=== PATIENT | female | born 1955 | race Caucasian/White ===

== ENCOUNTER → 2020-12-21 02:47 | Outpatient (CLI) | payer BC, SELFPAY ==
[2020-12-21 19:43] LABS: SARS-CoV-2 RNA PCR Negative
== END ==
PROVIDERS: PCP Family Medicine; Visit Provider Internal Medicine Gastroenterology
DX: Z01.812 Encounter for preprocedural laboratory examination (principal); Z20.822 Contact with and (suspected) exposure to COVID-19
CPT/HCPCS: C9803; U0003; U0005

== ENCOUNTER → 2021-01-25 00:06 | Outpatient (CLI) | payer BC, SELFPAY ==
[2021-01-25 19:27] LABS: SARS-CoV-2 RNA PCR Negative
== END ==
PROVIDERS: PCP Family Medicine; Visit Provider Internal Medicine Gastroenterology
DX: Z01.812 Encounter for preprocedural laboratory examination (principal); Z20.822 Contact with and (suspected) exposure to COVID-19
CPT/HCPCS: C9803; U0003; U0005

== ENCOUNTER 2021-01-29 00:26 | Day surgery (SDC) | payer BC, SELFPAY ==
[2020-12-12 14:11] VITALS: BMI 23.1
[2021-01-14 10:56] VITALS: BMI 23.1
[2021-01-29 06:16] VITALS: BP 120/62; PULSE 61; RESP 16; TEMP 36.3; O2SAT 100; BMI 22.4
[2021-01-29] MEDS: LACTATED RINGERS 1,000 ML 150 ML IV CONT (06:25)
--- NOTE | 2021-01-29 07:21 | P.PNAN_ITS ---
Anes - Initial Pre Proc Eval Procedure: Operation Date: 01/29/21 07:30 Proposed Procedures p Screening Colonoscopy - Constantino Darby MD Date/Time: 01/29/21 07:21 Surgeon: Constantino Darby MD Pre Op Diagnosis: neoplasm screening Patient Data Age: 65 Gender: F Height: 1.68 m Weight: 62.9 kg Last Vital Signs Temp 97.3 F L 01/29/21 06:16 Pulse 61 01/29/21 06:16 Resp 16 01/29/21 06:16 BP 120/62 01/29/21 06:16 Pulse Ox 100 01/29/21 06:16 Allergies Allergy/AdvReac Type Severity Reaction Status Date / Time NKDA Allergy Unknown Unknown Uncoded 01/29/21 06:14 Home Medications Medication Instructions Recorded Confirmed Type zolpidem 5 mg PO DAILY PRN 12/12/20 01/29/21 History Patient hx anesthesia problems: none Family hx anesthesia problems: none [facility] Past Medical History Medical History (Updated 01/29/21 @ 07:21 by Josue Raymundo MD) Healthy adult Social History Social History Smoking status: Never smoker Alcohol intake: current Drinks per week: 9 Alcohol use details: BEER Substance use: never Substance use type: does not use Living arrangements: with family Spiritual care concerns: No Anes - Eval Final PreProcedure Day of Procedure 01/29/21 07:21 Patient weight: normal Heart: regular rate and rhythm Lungs: clear to auscultation Airway: Mallampati scale class II Neurological: alert and oriented Last oral intake: >/= 8 hours ASA classification: I Emergent: no Anesthetic plan: proceed Anesthesia type and monitoring: general GIVS and standard monitoring Informed Consent: The patient's anesthetic plan and its attendant risks and benefits were discussed with the patient/family/POA. Questions were solicited and answers provided to the satisfaction of the patient/family/POA.
--- NOTE | 2021-01-29 07:23 | WPDGICN ---
Assessment and Plan Assessment and plan (1) Encounter for screening colonoscopy: Code(s): Z12.11 - Encounter for screening for malignant neoplasm of colon Status: Acute Assessment and Plan: Patient presents for screening for colon cancer. She appears to be at average risk for colon polyps. It has been 10 years since last exam. GI Consult Note Consult date/time: 01/29/21 07:23 HPI: Vibha Ontiveros is a 65 year old female Presents for screening colonoscopy. Patient states that her current weight appetite bowel movements are normal. She denies abdominal pain. She has had no bleeding. Is been 10 years since last colonoscopy. Family history is noncontributory. She desires neoplasia screening. Review of Systems Review of Systems: All systems reviewed & are unremarkable except as noted in HPI and below PMFSH Past Medical History Medical History (Updated 01/29/21 @ 07:25 by Constantino Darby MD) Healthy adult Social History Social History Smoking status: Never smoker Alcohol intake: current Drinks per week: 9 Alcohol use details: BEER Substance use: never Substance use type: does not use Living arrangements: with family Spiritual care concerns: No Meds Home Medications and Allergies Home Medications Medication Instructions Recorded Confirmed Type zolpidem 5 mg PO DAILY PRN 12/12/20 01/29/21 History Allergies Allergy/AdvReac Type Severity Reaction Status Date / Time NKDA Allergy Unknown Unknown Uncoded 01/29/21 06:14 Vital Signs Vital Signs - 24 hr 01/29/21 06:16 Temperature 97.3 F L Pulse Rate 61 Respiratory Rate 16 Blood Pressure 120/62 Pulse Oximetry 100 Exam Narrative: Exam Narrative: Physical exam reveals patient be alert. Vital signs stable. HEENT exam is unremarkable. Patient is anicteric. Lungs are clear to auscultation and percussion. Heart is without murmur or extra sounds. Abdominal exam bowel sounds are present soft nontender with no organomegaly. Digital external rectal exam is normal.
[2021-01-29 07:45] VITALS: BP 94/54; PULSE 52; RESP 16; O2SAT 97
[2021-01-29 07:52] VITALS: BP 103/59; PULSE 52; RESP 20; O2SAT 100
== END 2021-01-29 08:18 | disposition home or self-care (01) ==
PROVIDERS: PCP Family Medicine; Visit Provider Internal Medicine Gastroenterology
PROC: 0DJD8ZZ Inspection of Lower Intestinal Tract, Via Natural or Artificial Opening Endoscopic (ICD-10-PCS; CPT 45378; principal; 2021-01-29 07:30)
DX: Z12.11 Encounter for screening for malignant neoplasm of colon (principal); K64.8 Other hemorrhoids; K57.30 Diverticulosis of large intestine without perforation or abscess without bleeding
CPT/HCPCS: 45378; J2704; J7120

== ENCOUNTER → 2023-06-03 14:47 | Outpatient (CLI) | payer MEDICARE, SELFPAY ==
--- NOTE | ~2023-06-03 | XR_ITS ---
EXAMINATION: XR wrist LT 2V DATE: 06/03/2023 15:06 INDICATION: Synovitis and tenosynovitis. Left wrist pain. TECHNIQUE: 2 views of left wrist were obtained. COMPARISON: None. FINDINGS: Bone alignment is normal. No fracture. There is diffuse osteopenia. There is severe osteoar thritis of triscaphe joint and first carpometacarpal joint. IMPRESSION: 1. Polyarticular osteoarthritis. Reviewed, dictated and finalized at location E.
--- NOTE | ~2023-06-03 | XR_ITS ---
EXAMINATION: XR wrist RT 2V DATE: 06/03/2023 15:06 INDICATION: Synovitis and tenosynovitis. Right wrist pain. TECHNIQUE: 2 views of right wrist were obtained. COMPARISON: None. FINDINGS: Bone alignment is normal. No fracture. Osteopenia is noted. There is a 13 mm nonaggressive lytic lesion in capitate. There is moderate osteoarthritis of triscaphe joint and severe osteoarthrit is of first carpometacarpal joint. There is moderate osteoarthritis of scaphoid-capitate joint. IMPRESSION: 1. Polyarticular osteoarthritis. 2. 15 mm nonaggressive lytic lesion in capitate, likely an enchondroma or subchondral cyst. Reviewed, dictated and finalized at location E. IMPRESSION: 1. Polyarticular osteoarthritis. 2. 15 mm nonaggressive lytic lesion in capitate, likely an enchondroma or subch ondral cyst.
== END ==
PROVIDERS: PCP Family Medicine; Visit Provider Family Medicine
DX: M65.9 Synovitis and tenosynovitis, unspecified (principal); M15.9 Polyosteoarthritis, unspecified; M89.9 Disorder of bone, unspecified
CPT/HCPCS: 73100